=== PATIENT | male | born 1970 | race Caucasian/White ===

== ENCOUNTER → 2018-12-24 | Outpatient (CLI) | payer BC ==
[~2018-12-24] MED LIST: ADVIL 200MG TA200 MG PO; ASPIR-LOW81 MG PO; ASPIRIN E.C. 8181 MG PO; CARDIZEM CD 12120 MG PO; CLARITIN; CLARITIN 1010 MG/TAB PO; FISH OIL1 IU PO; GLUCOPHAGE; GLUCOPHAGE500 MG/TAB PO; LIPITOR20 MG PO; LOPRESSOR; NIASPAN375 MG PO; NUVIGIL150 MG PO; NUVIGIL250 MG PO; OMEGA 31000 MG PO; PAXIL 20MG20 MG PO; PRILOSEC 20MG20 MG PO; PRILOSEC10 MG PO; PRINZIDE 12.5 M1 TA1 PO; PROCARDIA XL 3030 MG PO; PROVIGIL200 MG PO; SYNTHROID0.075 MG/T PO
== END ==
LOC: DIA.ED 10:19
DX: E11.9 Type 2 diabetes mellitus without complications (principal); E78.5 Hyperlipidemia, unspecified; I10 Essential (primary) hypertension; E03.9 Hypothyroidism, unspecified; E66.9 Obesity, unspecified
CPT/HCPCS: G0108

== ENCOUNTER 2019-07-07 19:49 | Emergency (ER) | payer BC ==
[~2019-07-07] VITALS: Ht 185.4 cm; Wt 136.4 kg
[2019-07-07 20:32] VITALS: BP 128/81; PULSE 88; TEMP 98.1
== END 2019-07-07 21:25 | disposition home or self-care (01) ==
LOC: COL.ER 19:49
DX: S61.211A Laceration without foreign body of left index finger without damage to nail, initial encounter (principal); Z79.82 Long term (current) use of aspirin; Z79.84 Long term (current) use of oral hypoglycemic drugs; W26.0XXA Contact with knife, initial encounter; Y92.009 Unspecified place in unspecified non-institutional (private) residence as the place of occurrence of the external cause

== ENCOUNTER 2020-06-17 11:36 | Emergency (ER) | payer BC ==
[~2020-06-17] VITALS: Ht 185.4 cm; Wt 143.2 kg
[2020-06-17 11:42] VITALS: TEMP 100.9
[2020-06-17 13:13] VITALS: BP 124/76; PULSE 89
== END 2020-06-17 13:30 | disposition home or self-care (01) ==
LOC: COL.ER 11:36
DX: M25.511 Pain in right shoulder (principal); E03.9 Hypothyroidism, unspecified; E78.5 Hyperlipidemia, unspecified; Z87.891 Personal history of nicotine dependence; Z79.82 Long term (current) use of aspirin; Z79.890 Hormone replacement therapy; Z79.899 Other long term (current) drug therapy

== ENCOUNTER 2021-08-11 09:58 | Day surgery (SDC) | payer OTHER ==
[~2021-08-11] VITALS: Ht 185.4 cm; Wt 143.0 kg
[2021-08-11] MEDS ORDERED: CATAPRES 0.1MG0.1 MG PO (10:34)
[2021-08-11] MEDS ORDERED: FLONASEALLERGY NS (10:35)
[2021-08-11] MEDS ORDERED: METHOTREXA2.5 MG/TAB PO (10:35)
[2021-08-11] MEDS ORDERED: LIPITOR 40MG TA40 MG PO (10:36)
[2021-08-11] MEDS ORDERED: PRILOTC PO (10:36)
[2021-08-11] MEDS ORDERED: LEVOXYL0.1 MG PO (10:36)
[2021-08-11] MEDS ORDERED: ZESTRIL40 MG PO (10:37)
[2021-08-11] MEDS ORDERED: GLUCOPHAGE1000 MG PO (10:37)
[2021-08-11] MEDS ORDERED: PAXIL 20MG20 MG PO (10:37)
[2021-08-11] MEDS ORDERED: MASON NATURAL2000 IU PO (10:38)
[2021-08-11] MEDS ORDERED: NESINA25 PO (10:38)
[2021-08-11] MEDS ORDERED: FOLIC ACID 11 MG/TA1 PO (10:38)
[2021-08-11 10:46] VITALS: BP 137/88; PULSE 76; TEMP 98.2
[2021-08-11 13:50] VITALS: BP 113/80; PULSE 78; TEMP 97.3
--- NOTE | 2021-08-11 13:50 | NUR ---
PATIENT TO ROOM 6 VIA CART. ASSIST X 1 TO CHAIR. HE IS ALERT AND ORIENTED. HE IS REQUESTING VANILLA PUDDING AND APPLE JUICE. VITALS ARE WNL. IS AT BEDSIDE. WILL CONTINUE TO MONITOR.
[2021-08-11 14:05] VITALS: BP 110/85; PULSE 81
--- NOTE | 2021-08-11 14:05 | NUR ---
PATIENT IS AWAKE AND ORIENTED. TOLERATING DRINKING AND EATING WELL. IS AT BEDSIDE. VITALS WNL. WILL CONTINUE TO MONITOR.
[2021-08-11 14:20] VITALS: BP 150/99; PULSE 72
--- NOTE | 2021-08-11 14:20 | NUR ---
PATIENT READY FOR DISCHARGE. DOCTOR WENT OVER RESULTS WITH HIM. IV D/Cd AND PATIENT IS GETTING DRESSED. FINAL SET OF VITALS IS WNL. AT BEDSIDE. WILL WHEEL HIM DOWNSTAIRS WHEN READY.
== END 2021-08-11 14:33 | disposition home or self-care (01) ==
LOC: SDCO 09:58
DX: Z98.84 Bariatric surgery status (principal); Z13.810 Encounter for screening for upper gastrointestinal disorder; Z87.891 Personal history of nicotine dependence
CPT/HCPCS: J2704; J7120

== ENCOUNTER 2022-06-29 15:29 | Emergency (ER) | payer OTHER ==
[~2022-06-29] VITALS: Ht 185.4 cm; Wt 113.6 kg
[~2022-06-29 15:29] MED LIST changes: +CATAPRES 0.1MG0.1 MG PO; +FLONASEALLERGY NS; +FOLIC ACID 11 MG/TA1 PO; +GLUCOPHAGE1000 MG PO; +LEVOXYL0.1 MG PO; +LIPITOR 40MG TA40 MG PO; +MASON NATURAL2000 IU PO; +METHOTREXA2.5 MG/TAB PO; +NESINA25 PO; +PRILOTC PO; +ZESTRIL40 MG PO
[2022-06-29 15:46] VITALS: BP 133/89; TEMP 98.4
[2022-06-29] MEDS ORDERED: MEDROL 4MG DOSPA4 MG PO (16:48)
[2022-06-29] MEDS ORDERED: NORCO 325 MG-51 TAB PO (16:48)
[2022-06-29 17:06] VITALS: PULSE 72
== END 2022-06-29 17:06 | disposition home or self-care (01) ==
LOC: COL.ER 15:29
DX: M26.601 Right temporomandibular joint disorder, unspecified (principal); Z87.39 Personal history of other diseases of the musculoskeletal system and connective tissue; Z79.620 Long term (current) use of immunosuppressive biologic
CPT/HCPCS: J7512

== ENCOUNTER 2023-02-22 09:00 | Outpatient (RCR) | payer OTHER ==
[~2023-02-22 09:00] MED LIST changes: +MEDROL 4MG DOSPA4 MG PO; +NORCO 325 MG-51 TAB PO
== END 2023-03-03 | disposition home or self-care (01) ==
LOC: WSOT
DX: M25.522 Pain in left elbow (principal)